=== PATIENT | male | born 1970 | race Caucasian/White ===

== ENCOUNTER 2016-12-24 13:06 | Emergency (ER) | payer OTHER ==
[2016-12-24 13:14] VITALS: BP 132/90; PULSE 91; RESP 16; TEMP 98.1; O2SAT 95
--- NOTE | 2016-12-24 13:25 | EDPHY ---
H & P Time Seen by Provider: 12/24/16 13:24 HPI/ROS: CHIEF COMPLAINT: Right arm pain and numbness. HISTORY OF PRESENT ILLNESS: This is a 46-year-old male with a history of cervical fusion and disc herniation status post neck injury 11/2015 secondary to a snowboarding accident. A week ago he developed right arm pain and numbness that have been constant and worsening since onset. He reports that these symptoms feel the same as his symptoms when he had a previous bulging disc. He admits associated lower cervical/upper thoracic spine pain. He denies weakness, headache, or other complaints. His last cervical spine MRI was 02/2016 and his neurosurgeon was Dr. Villanueva. . REVIEW OF SYSTEMS: A complete 10-point review of systems was performed and is negative except for those items mentioned in the HPI. Past Medical/Surgical History: Discectomy C5/C6, disc herniation C4/C5. 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 Smoking Status: Never smoked Physical Exam: General Appearance: Alert, pleasant Eyes: Pupils equal and round, no conjunctival pallor ENT, Mouth: Mucous membranes moist Neck: Normal inspection, no midline tenderness Neurological: decreased sensation to light touch over the lateral aspect of the right forearm; news reporter strength and finger flexion/extension/abduction normal; 1+ biceps tendon reflexes bilaterally Skin: Warm and dry, no rash Extremities: nontender, no swelling Psychiatric: Mood and affect normal Constitutional: Initial Vital Signs Temperature (C) 36.7 C 12/24/16 13:10 Heart Rate 91 12/24/16 13:10 Respiratory Rate 16 12/24/16 13:10 Blood Pressure 132/90 H 12/24/16 13:10 O2 Sat (%) 95 12/24/16 13:10 O2 Delivery Mode Room Air Allergies/Adverse Reactions: No Known Allergies Allergy (Verified 12/24/16 13:09) Home Medications: Medication Instructions Recorded methylPREDNISolone [Medrol Dose 1 each PO AD #1 ea 12/24/16 Jeffrey] Medical Decision Making ED Course/Re-evaluation: I offered the patient MRI imaging from the emergency department but he declined. He is comfortable taking a steroid taper and will call his neurosurgeon if symptoms do not improve. I also offered pain medications but he declined. Departure - Departure Disposition: Home, Routine, Self-Care Clinical Impression: Cervical radiculopathy Condition: Good Instructions: Cervical Disc Herniation (ED), Cervical Radiculopathy (ED) Additional Instructions: Take the steroid as instructed. Call Dr. Villanueva, neurosurgery, tomorrow to set up an appointment for next week. Return to the emergency department if you experience weakness, worsening pain or numbness, or any other serious worsening of condition. Referrals: Ad Villanueva MD [Medical Doctor] - 5-7 days, call for appt. Prescriptions: methylPREDNISolone [Medrol Dose Jeffrey] 1 each PO AD #1 ea Report Scribed for: Sheridan Zimmerman Report Scribed by: Mohan Pastor Date of Report: 12/24/16 Time of Report: 13:27 Physician Review and Approval Statement: 12/24/16 13:25 Portions of this note were transcribed by a biomedical repair technician. I personally performed a history, physical exam, medical decision making, and confirmed accuracy of information the transcribed note.
== END 2016-12-24 14:15 | disposition home or self-care (01) ==
DX: M54.12 Radiculopathy, cervical region (principal)

== ENCOUNTER → 2016-12-31 | Outpatient (CLI) | payer OTHER | LOC: FIMAGING 09:50 | PROVIDERS: ATTEND Family Medicine | DX: M67.462 Ganglion, left knee (principal); M25.562 Pain in left knee ==

== ENCOUNTER → 2017-01-10 | Outpatient (CLI) | payer OTHER | LOC: FIMAGING 14:26 | PROVIDERS: ATTEND Physician Assistant | DX: M50.20 Other cervical disc displacement, unspecified cervical region (principal); M99.71 Connective tissue and disc stenosis of intervertebral foramina of cervical region; Z98.1 Arthrodesis status ==

== ENCOUNTER 2017-02-28 11:35 | Emergency (ER) | payer OTHER ==
--- NOTE | 2017-02-28 11:58 | EDPHY ---
H & P Stated Complaint: Sent by PCP for CT and eval "lump in throat" x 4 days Source: Patient, RN/MD - Personal History Current Tetanus Diphtheria and Acellular Pertussis (TDAP): Yes - Medical/Surgical History Hx Asthma: No Hx Chronic Respiratory Disease: No Hx Diabetes: No Hx Cardiac Disease: No Hx Renal Disease: No Hx Cirrhosis: No Hx Alcoholism: No Hx HIV/AIDS: No Hx Splenectomy or Spleen Trauma: No Other PMH: disc in neck replaced - Social History Smoking Status: Former smoker Time Seen by Provider: 02/28/17 11:49 HPI/ROS: CHIEF COMPLAINT: Throat pain HISTORY OF PRESENT ILLNESS: 46-year-old male presents emergency department sent from his primary care doctor Bry for a CT scan of his neck. Patient reporting a 6 month history of feeling like he has to clear his throat all the time with the last month difficulty swallowing, food getting stuck. Patient reports the last 3 days he has had swelling and pain to the anterior neck. He denies fevers, no chills, denies trauma, no difficulty breathing. Patient had a cervical fusion many years ago. REVIEW OF SYSTEMS: A comprehensive 10 point review of systems is otherwise negative aside from elements mentioned in the history of present illness. (Shira Frazier) - Physical Exam Exam: Physical Exam Gen: Alert and Oriented, NAD HEENT: PERRL, moist mucous membranes, posterior pharynx with no erythema, uvula midline, no tonsillar hypertrophy, no exudate, no bleeding, no peritonsillar abscess NECK: Anterior neck tenderness to palpation, no swelling, no masses CV: regular rate and regular rhythm PULM: CTAB, no wheezes ABDOMEN: soft, non tender to palpation, BS present BACK: No CVA tenderness NEURO: Neurologically grossly intact EXTREMITIES: normal appearing SKIN: no rash or break in skin on exposed skin PSYCH: answers questions appropriately. (Shira Frazier) Constitutional: Initial Vital Signs Temperature (C) 37.1 C 02/28/17 11:37 Heart Rate 90 02/28/17 11:37 Respiratory Rate 18 02/28/17 11:37 Blood Pressure 138/84 H 02/28/17 11:37 O2 Sat (%) 95 02/28/17 11:37 O2 Delivery Mode Room Air Allergies/Adverse Reactions: No Known Allergies Allergy (Verified 02/28/17 11:38) Home Medications: Medication Instructions Recorded methylPREDNISolone [Medrol Dose 1 each PO AD #0 ea 02/28/17 Jeffrey] Medical Decision Making - Diagnostics Imaging: Discussed imaging studies w/ scallop raker Radiologist ED Course/Re-evaluation: IV established, CBC, i-STAT, thyroid panel, CT soft tissue neck with IV contrast ordered. Labs are unremarkable, CT soft tissue neck is negative for any abnormality. Dr. Mccray consulted. 2pm- Dr. Mccray preformed a flexible fiberoptic scope. Mild bruising noted to left vocal cord. No mass or abnormality. Patient will be discharged home. Dr. Mccray would like him to take Prilosec 20 mg twice a day for 6 weeks and he should start a Medrol Dosepak today. Patient is given strict return precautions for any worsening symptoms. He is comfortable with this plan. ( Shira Frazier) Differential Diagnosis: Diagnosis considered but not limited to mass, abrasion, foreign body, malignancy , acid reflux, Jaswant's angina (Shira Frazier) Other Provider: I evaluated and participated in the management of the patient. My co-signature indicates that I have reviewed this chart and I agree with thefindings and plan of care as documented.My personal H&P findings include: 46 year old male with history of clearing throat and some swallow difficulties for 6 months. Symptoms worsening over past 3 weeks with difficulty swallowing unless positioned a certain way, and now noticing voice changes. Also reports pain to anterior neck. Prior history of chewing tobacco. On exam, no swelling appreciated, no erythema, no crepitus on neck. Tenderness is present over larynx, thyroid, and anterior neck. Oral exam normal with no sublingual tenderness or swelling. No stridor, not wheezing, normal pulmonary exam. History concerning for serious etiologies including abscess, stricture, graves disease, malignancy, infection. Evaluation included CT scan of soft tissues of neck with contrast as well as evaluation by Dr Mccray of ENT. No significant findings on either study except for bruise on left vocal cord. No history of neck trauma, strangulation, choking provided by patient. Patient felt safe to be discharged with prilosec and a medrol dosepack. Strict return precautions given. Follow up with Dr Mccray. (Camelia Lance) - Data Points Laboratory Results: Laboratory Results 02/28/17 12:08 02/28/17 12:08 Departure - Departure Disposition: Home, Routine, Self-Care Clinical Impression: Anterior neck pain, Change in voice Condition: Good Instructions: Gastroesophageal Reflux Disease (ED) Additional Instructions: Take 20 mg of Prilosec twice daily for 6 weeks. Take Medrol Dosepak. Take each days pills all at once for the duration of the Dosepak. Follow up with Dr. Mccray in 2 weeks, call her nurse at [phone] on Thursday to schedule this appointment. Return to the emergency department or call Dr. Mccray for any worsening symptoms. Referrals: Pam Mccray MD [Medical Doctor] - As per Instructions (Call her nurse at ) Prescriptions: methylPREDNISolone [Medrol Dose Jeffrey] 1 each PO AD #0 ea
[2017-02-28 12:20] LABS: % IMMATURE GRANULYOCYTES 0.4 % (0.0-1.1); ABSOLUTE IMMATURE GRANULOCYTES 0.03 10^3/uL (0.00-0.10); ADD DIFF? NO; ADD MORPH? NO; ADD SCAN? NO; ATYPICAL LYMPHOCYTE FLAG 20 (0-99); FRAGMENT RBC FLAG 0 (0-99); HEMATOCRIT 45.8 % (40.0-51.0); HEMOGLOBIN 16.5 g/dL (13.7-17.5); LEFT SHIFT FLG 0 (0-99); LIPEMIA HEMOLYSIS FLAG 90 (0-99); MEAN CELL HEMOGLOBIN 33.9 pg (27.9-34.1); MEAN PLATELET VOLUME 9.8 fL (8.7-11.7); PLATELET CLUMPS FLAG 0 (0-99); PLATELET COUNT 189 10^3/uL (150-400); RED BLOOD CELL COUNT 4.87 10^6/uL (4.40-6.38); RED CELL DISTRIBUTION WIDTH 12.6 % (11.5-15.2)
[2017-02-28] MEDS ORDERED: IOPAMIDOL (ISOVUE-300) 100 ML BTL IV ONE (12:27)
[2017-02-28 12:40] LABS: ANION GAP 10 mEq/L (8-16); CALCIUM 10.1 mg/dL (8.5-10.4); CARBON DIOXIDE 25 mEq/l (22-31); CHLORIDE 103 mEq/L (97-110); GLOMERULAR FILTRATION RATE > 60; GLUCOSE 99 mg/dL (70-100); POTASSIUM 3.9 mEq/L (3.5-5.2); SODIUM 138 mEq/L (134-144)
[2017-02-28 13:14] VITALS: BP 136/89; PULSE 89; RESP 16; TEMP 98.6; O2SAT 96
--- NOTE | 2017-02-28 15:08 | GCON ---
[f rep st] CONSULTATION DATE OF CONSULTATION: 02/28/2017 CHIEF COMPLAINT: Hoarseness and pain. HISTORY OF PRESENT ILLNESS: This is a pleasant 46-year-old man who has a 4-6 month history of globus and throat clearing. He states he does not have reflux typically, although recently seems like he has been getting it more. He gets it 3-4 times per week. He states that over the past couple weeks he started having a little bit of increased difficulty swallowing with pain, and then more acutely over the past 3-4 days he has had some hoarseness with increasing difficulty swallowing which seems like it is mainly related to pain. He does state that he has to wash things down, but he does not cough or choke with liquids or have any difficulty having to regurgitate food. He denies any significant trauma to the neck, but states that over the past 2-3 days. He has noted some increasing swelling over the laryngeal cartilages, and he thinks it looks red. It does hurt to swallow. He denies any shortness of breath and does not feel otherwise that he has not had any fevers, and he denies overt malaise. PAST MEDICAL HISTORY: Significant for an anterior cervical fusion at C5-C6. He is a previous smoker, though does not smoke any more. 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 He does feel like he has been coughing more over the past week, but he has not had any other significant vocal trauma. He has not started any new medications. ALLERGIES: He has no known drug allergies. PHYSICAL EXAM: GENERAL: He is awake, alert, in no apparent distress. He has no stridor or wheeze that is audible. VITAL SIGNS: Saturations are 95% on room air. He is afebrile. Stable. HEENT: Ear canals are clear with an intact TM, and no middle ear effusion bilaterally and nose shows some dry crusting but otherwise no abnormalities. He has a small spur on the left oral cavity and oropharynx and pharynx shows a tongue that is mobile and midline. Palate elevates symmetrically. There is no posterior pharyngeal fullness or floor of mouth swelling. NECK: Shows no lymphadenopathy or masses. There is no significant redness or induration or cellulitis that I appreciate. He is pretty tender on the anterior aspect of the thyroid cartilage. It hurts to palpation over this region as well as over the cricoid, and there may be a little bit of edema here but not significantly appreciated. He has no other masses or lesions. Flexible fiberoptic scope was performed after verbal informed consent was obtained. I sprayed about 1 cc total of oxymetazoline and 4% lidocaine into the bilateral nares. Once this had sufficient time to act, the scope was placed through the right naris. Nasal cavity is clear. Nasopharynx is clear as well. Oral cavity and oropharynx shows a base of tongue that is symmetric. Vallecula is open and clear. Bilateral vocal cords are mobile, but he does have what looks like some ecchymosis of the left true vocal fold. There is no significant edema of the vocal fold or the false cords. He has no pooling of the hypopharynx, but he does have some edema of the post cricoid region as well as interarytenoid edema. The immediate subglottis looks patent from what I can tell. CT scan was reviewed, and I also spoke with Dr. Pagan, the radiologist. Neither of us could appreciate any significant edema or swelling of the anterior soft tissues of the neck or of the interior of the larynx. He does have a previous ACDF at C5 and C6 that is appreciated. The hardware looks intact, and there is no cellulitis overlying this region. Airway is patent on the scan. ASSESSMENT AND PLAN: This is a patient who has odynophagia and hoarseness for the past couple of days as well as reflux changes and symptoms. He has an ecchymosis of the left true vocal fold. I am not quite sure why he has this. It could be related excessive coughing or yelling. He did not have any trauma to the neck, and there were no fracture seen on the CT scan. I explained I wanted to do some voice rest for the next couple of days. I would like to start him on Prilosec twice a day 30 minutes before meals. I would also like to do a Medrol Dosepak. Starting today in taking a full days dose at 1 time in the morning he was given our phone number to call for repeat appointment in 2 weeks for re-evaluation, and he was encouraged to call if he gets any symptoms that worsen further sooner Thanks for the consultation and call me if you need anything at all. /[id number]/MODL MTDD
== END 2017-02-28 14:40 | disposition home or self-care (01) ==
DX: M54.2 Cervicalgia (principal); R49.9 Unspecified voice and resonance disorder; Z87.891 Personal history of nicotine dependence
CPT/HCPCS: 82947-QW; 84481-90; Q9967

== ENCOUNTER 2018-02-24 15:22 | Emergency (ER) | payer OTHER ==
--- NOTE | 2018-02-24 15:51 | EDPHY ---
General Time Seen by Provider: 02/24/18 15:41 Narrative: CHIEF COMPLAINT: Fall, multiple areas of pain HISTORY OF PRESENT ILLNESS: Patient complains of pain in his shoulders, ribs, thoracic spine, between his scapula, and pain throughout his legs and arms. He says he was working next to a [employer] at work yesterday around 3:00 p.m. When he slipped and fell backwards. He landed on concrete striking his back 1st. He says "then my head whipped back and hit the ground." He denies any loss of consciousness. Yesterday he said that he felt minimal pain in the areas he struck the ground. Today he awoke with significant pain in all the areas of above. It is all worse with movement of his limbs. There is no radiating pain. He does have a mild headache. He has no numbness or tingling anywhere. He does have thoracic pain, extremity pain at times. It is worse when he lays down as well. He has no vomiting. No visual disturbance. No neck pain or stiffness. No incontinence of bowel or bladder. ESTABLISHED ORTHOPEDIST: None currently REVIEW OF SYSTEMS: Ten systems reviewed and are negative unless otherwise noted in the HPI PAST MEDICAL HISTORY: Cervical stenosis status post fusion with chronic neck pain PAST SURGICAL HISTORY: Cervical fusion 1003 SOCIAL HISTORY: Nonsmoker. Occasional alcohol use. Occasional medical marijuana use. 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 No Mao sign, raccoon eyes or signs of trauma. ENT: Pupils equal round reactive. EOM symmetric. Airway widely patent Neck: Supple. There is no midline tenderness, crepitus, step-off or deformity. There is soft tissue tenderness of the trapezius. Cardiovascular: Pulses normal throughout. Regular rate rhythm with no murmur. Brisk cap refill Back: Soft tissue tenderness of the thoracic and lumbar spine. Mild thoracic spine tenderness. No lumbar spine tenderness, crepitus step-off or deformity. Neurological: A&O, strength is symmetric in upper extremities and lower extremities including the great toes. Sensory is symmetric to the deltoids, anterior thighs and plantar surfaces. No pronator drift. Normal finger-to- nose. Skin: Warm and dry, no rash no petechiae. No purpura. No lacerations, abrasions or puncture Extremities: There is no bony tenderness of the extremities. There is tenderness of the soft tissue structures at all levels of the upper extremities , lower extremities. Range of motion is symmetric in the upper lower extremities. Psychiatric: Mood and affect normal DIFFERENTIAL DIAGNOSES: Including but not limited to delayed onset muscle soreness, strain, sprain, fracture, concussion, intracranial hemorrhage MDM: 3:50 p.m. Mechanical fall yesterday with delayed onset of pain and soreness that started today. He is neuro intact with some mild rib tenderness and thoracic spine tenderness. He has no lumbar or cervical tenderness. No evidence of intracranial abnormality or basilar skull fracture. I have ordered medications for his discomfort as well as chest x-ray and thoracic spine x-ray. He is resting comfortably in no acute distress. 4:12 p.m. X-rays as read by me reveal no acute findings. There is cervical spine hardware in place. 4:30 p.m. Patient re-evaluated. His symptoms are starting to improve. I reviewed the x- rays with him. I do feel he is stable for discharge home with symptomatic medications. He will keep applying the heating pad that he now tells me he has been using, which has helped his symptoms. I will provide short course of pain medication and muscle relaxant. We have strict ED precautions for worsening pain, numbness, tingling, weakness, incontinence of bowel or bladder. I provided the on-call primary care information for him. I have answered all his questions. He is comfortable with being discharged home, and he is discharged home stable condition. SUPERVISION: This patient was independently evaluated without direct involvement of or examination by the attending physician. ED Precautions: Worsening pain. Erythema, edema, cyanosis, pallor, paresthesia or anesthesia. - History Smoking Status: Former smoker - Objective Vital Signs: Initial Vital Signs Temperature (C) 98.1 F 02/24/18 15:24 Heart Rate 94 02/24/18 15:24 Respiratory Rate 16 02/24/18 15:24 Blood Pressure 126/82 H 02/24/18 15:24 O2 Sat (%) 96 02/24/18 15:24 O2 Delivery Mode Room Air Allergies/Adverse Reactions: No Known Allergies Allergy (Verified 02/28/17 11:38) Home Medications: Medication Instructions Recorded Cyclobenzaprine [Flexeril 10 MG 10 mg PO TID PRN #9 tab 02/24/18 (*)] oxyCODONE HCL/ACETAMINOPHEN 1 each PO Q4-6PRN PRN #9 tablet 02/24/18 [Percocet 5-325 mg Tablet] Medications Given: Discontinued Medications Cyclobenzaprine HCl (Flexeril) 10 mg PO EDNOW ONE Stop: 02/24/18 15:53 Last Admin: 02/24/18 15:57 Dose: 10 mg Oxycodone/Acetaminophen (Percocet 5/325) 2 tab PO EDNOW ONE Stop: 02/24/18 15:53 Last Admin: 02/24/18 15:58 Dose: 2 tab Departure - Departure Disposition: Home, Routine, Self-Care Clinical Impression: Fall Qualifiers: Encounter type: initial encounter Qualified Code(s): W19.XXXA - Unspecified fall, initial encounter Thoracic myofascial strain Qualifiers: Encounter type: initial encounter Qualified Code(s): S29.019A - Strain of muscle and tendon of unspecified wall of thorax, initial encounter Acute lumbar myofascial strain Qualifiers: Encounter type: initial encounter Qualified Code(s): S39.012A - Strain of muscle, fascia and tendon of lower back, initial encounter Closed head injury Qualifiers: Encounter type: initial encounter Qualified Code(s): S09.90XA - Unspecified injury of head, initial encounter Condition: Good Instructions: Muscle Strain (ED), Low Back Strain (ED) Additional Instructions: 1. Flexeril as prescribed for muscle spasm as needed 2. Pain medication as prescribed as needed 3. Follow up with primary care physician. I have provided the information for you to call and establish with 4. ED precautions as discussed [facility]. [facility] Referrals: Aurea Londono MD [Medical Doctor] - As per Instructions Physician,Emergency DepMD ines [Medical Doctor] - As per Instructions Prescriptions: Cyclobenzaprine [Flexeril 10 MG (*)] 10 mg PO TID PRN #9 tab PRN Reason: Spasms oxyCODONE HCL/ACETAMINOPHEN [Percocet 5-325 mg Tablet] 1 each PO Q4-6PRN PRN #9 tablet PRN Reason: Pain, Breakthrough
[2018-02-24] MEDS ORDERED: CYCLOBENZAPRINE 10 MG TAB PO ONE (15:52)
[2018-02-24] MEDS ORDERED: OXYCODONE/APAP 5/325 TAB PO ONE (15:52)
[2018-02-24 16:43] VITALS: BP 123/85
== END 2018-02-24 16:41 | disposition home or self-care (01) ==
DX: S29.019A Strain of muscle and tendon of unspecified wall of thorax, initial encounter (principal); S39.012A Strain of muscle, fascia and tendon of lower back, initial encounter; S09.90XA Unspecified injury of head, initial encounter; Z87.891 Personal history of nicotine dependence; W01.198A Fall on same level from slipping, tripping and stumbling with subsequent striking against other object, initial encounter; Y92.69 Other specified industrial and construction area as the place of occurrence of the external cause; Y99.0 Civilian activity done for income or pay; Y93.89 Activity, other specified

== ENCOUNTER 2018-02-25 10:59 | Emergency (ER) | payer OTHER ==
--- NOTE | 2018-02-25 12:22 | EDPHY ---
H & P Stated Complaint: inj at work tues/back pain seen yesterday/coughed yesterday with increasing Time Seen by Provider: 02/25/18 12:15 HPI/ROS: CHIEF COMPLAINT: New onset C-spine pain. HISTORY OF PRESENT ILLNESS: 47-year-old male seen emergency department yesterday after he fell off of a [employer]ift, his feet were approximately 4 ft in the air when he fell backward. This was a mechanical incident. Emergency department yesterday he had thoracic spine imaging which was negative. States that upon returning home he coughed and felt exquisite pain to the left paraspinous thoracic region. This pain is controlled with Flexeril and opiates. He does note a new development of midline C-spine pain as well as new development of bilateral upper extremity paresthesias. No weakness no wrist drop. He did impact his head when he fell. No loss of consciousness. No headache. No nausea or vomiting. REVIEW OF SYSTEMS: A ten point review of systems was performed and is negative with the exception of the items mentioned in the HPI PAST MEDICAL/SURGICAL HISTORY: no anticoagulant use, no relevant medical/ surgical history SOCIAL HISTORY: denies alcohol use at time of incident PHYSICAL EXAM 1) GENERAL: Well-developed, well-nourished, alert and oriented. Appears uncomfortable when he is asked to move. Answering questions appropriately. 2) HEAD: Normocephalic, atraumatic 3) HEENT: Pupils equal, round, reactive to light bilaterally. Negative Horners. Nasopharynx, oropharynx, clear. No deformity or angulation of nose. No septal hematoma. No rhinorrhea. No oral trauma. Ears bilaterally with normal tympanic membranes. No hemotympanum. No fluid or blood in the external auditory canal. No raccoon eyes. No Mao sign. Teeth are normally aligned with no gross malocclusion, TMJ bilaterally nontender, facial bones nontender including the zygomatic arch, maxilla mandible. 4) NECK: No cervical collar is on. Patient is unable to completely differentiate between true midline pain versus just lateral of midline pain.Cervical collar is replaced at that point.and patient has no complaints of midline cervical pain, no effusion noted, trachea midline, no JVD. 5) LUNGS: Clear to auscultation bilaterally, no wheezes, no rhonchi, no retractions. No obvious signs of trauma. No chest wall pain. No flaring, no grunting. Moving symmetrically. No crepitus. 6) HEART: [Regular rate and rhythm, 7) ABDOMEN: No guarding, no rebound, no focal tenderness, no peritoneal signs, no signs of trauma, no ecchymosis 8) MUSCULOSKELETAL: Moving all extremities, no focal areas of tenderness, no obvious trauma. 9) BACK: Tender to palpation left paraspinous thoracic region with no visible signs of trauma. No midline vertebral tenderness, no fluctuance, no step-off, no obvious trauma, no visual or palpable abnormality. 10) SKIN: No laceration. No abrasion 11) NEURO: Awake, alert, and oriented to person, place and time. Answers questions appropriately. There were no obvious focal neurologic abnormalities. No cerebellar dysfunction. Cranial nerves 2 through to 12 intact. Normal steady gait. Upper and lower extremities bilaterally with strength 5 / 5, reflexes 2+. DIFFERENTIAL DIAGNOSIS: In no particular order my differential includes but is not limited to deep space infection, cervico-cranial vessel disssection, muscle strain. - Personal History Current Tetanus/Diphtheria Vaccine: Yes - Medical/Surgical History Hx Asthma: No Hx Chronic Respiratory Disease: No Hx Diabetes: No Hx Cardiac Disease: No Hx Renal Disease: No Hx Cirrhosis: No Hx Alcoholism: No Hx HIV/AIDS: No Hx Splenectomy or Spleen Trauma: No Other PMH: C5 - C6 fusion. - Social History Smoking Status: Former smoker Constitutional: Initial Vital Signs Temperature (C) 36.4 C 02/25/18 11:04 Heart Rate 83 02/25/18 11:04 Respiratory Rate 18 02/25/18 11:04 Blood Pressure 126/82 H 02/25/18 11:04 O2 Sat (%) 95 02/25/18 11:04 O2 Delivery Mode Room Air Allergies/Adverse Reactions: No Known Allergies Allergy (Verified 02/25/18 11:04) Home Medications: Medication Instructions Recorded Cyclobenzaprine [Flexeril 10 MG 10 mg PO TID PRN #9 tab 02/24/18 (*)] oxyCODONE HCL/ACETAMINOPHEN 1 each PO Q4-6PRN PRN #9 tablet 02/24/18 [Percocet 5-325 mg Tablet] Lidocaine [Lidoderm] 1 each TP BID #30 adh..patch 02/25/18 methylPREDNISolone [Medrol Dose 4 mg PO DAILY #1 ea 02/25/18 Jeffrey] Medical Decision Making - Diagnostics Imaging Results: Imaging Impressions Cervical Spine CT 02/25/18 12:26 Impression: 1. No acute posttraumatic abnormality identified. If there is persistent pain or neurologic deficit, consider MRI and/or flexion and extension views if clinically indicated. 2. Additional findings as above. Findings discussed with Pamela Weber on 02/25/2018 at 13:12. Cervical Spine MRI 02/25/18 13:17 Impression: 1. Prior diskectomy and interbody fusion at C5-C6. Diffuse annular bulging at C4 -C5 with bilateral neural foraminal stenosis. No acute abnormality of the cervical spine or cervical spinal cord identified. Ribs w/Chest X-Ray 02/25/18 13:17 Impression: 1. Negative Right rib series. 2. No acute abnormality within the chest. 3. Mild scoliosis. Images reviewed myself ED Course/Re-evaluation: 12:26 p.m.: I reviewed this patient's medical records and x-ray report of his thoracic spine perform the emergency department yesterday. Emergency department today he is complaining of paraspinous left thoracic pain reproducible to palpation deep inspiration. Has absolutely no midline thoracic spine pain, he is breathing comfortably, no crepitus, lungs are clear bilaterally. At this time I do not think that further imaging of his thoracic spine is indicated. Addition his pain is controlled. Head however, he is complaining of new midline cervical spine pain as well as new bilateral upper extremity paresthesias. He is neurologically intact on exam. He has been placed in cervical collar, will obtain CT imaging and likely MRI if he remains with paresthesias. Care of patient under supervision of secondary supervising physician Dr Garcia . 1:19 p.m.: I reviewed the patient his negative CT imaging. He continues to complain of paresthesias bilateral hands and fingers . Will obtain MRI. Will place IV for pain management. 2:57 p.m.: Phone consultation with Dr. Teixeira neurosurgeon regarding the patient 's imaging which is negative for acute abnormality. The patient continues to complain of paresthesias to the bilateral upper extremities. Will initiate therapy with Medrol Dosepak and patient will follow up on outpatient basis. 3:05 p.m.: I re-evaluated the patient. Cervical collar is removed. Full range of motion which does not worsened peripheral paresthesias neurologic deficits. His left thoracic back pain is controlled at this time. I re- examined him at this time. Specific attention paid to the location of his spleen and kidneys and he has absolutely no discomfort over these areas. I think that acute splenic injury, acute renal injury is less than likely in this patient at this time. I do not think that specific imaging of the abdomen is indicated at this time. Chest x-ray performed showing no pneumothorax, no definitive rib fracture. He has been given incentive spirometer. He has analgesia at home. his pain is controlled. - Data Points Medications Given: Discontinued Medications Ketorolac Tromethamine (Toradol) 15 mg IVP EDNOW ONE Stop: 02/25/18 13:18 Last Admin: 02/25/18 14:37 Dose: 15 mg Lorazepam (Ativan Injection) 1 mg IVP EDNOW ONE Stop: 02/25/18 13:18 Last Admin: 02/25/18 14:44 Dose: Not Given Miscellaneous Medication (Icy Hot Lidocaine/Menthol 4%/1% Patch) 1 patch TD EDNOW ONE Stop: 02/25/18 15:05 Last Admin: 02/25/18 15:34 Dose: 1 patch Departure - Departure Disposition: Home, Routine, Self-Care Clinical Impression: Paresthesia of upper extremity, Thoracic spine pain Cervical strain, acute Qualifiers: Encounter type: initial encounter Qualified Code(s): S16.1XXA - Strain of muscle, fascia and tendon at neck level, initial encounter Condition: Good Instructions: Cervical Strain (ED), Cervical Strain (DC), Thoracic Pain (ED) Additional Instructions: Return to the ER immediately if you experience new or worsening neck pain, dizziness, visual disturbance, double vision, lightheadedness, facial droop, or any other symptoms that concern you. Avoid deep tissue massage and chiropractic manipulation, until symptom-free, and cleared by your regular health care provider. Referrals: Oli Teixeira MD [Medical Doctor] - 5-7 days, call for appt. Prescriptions: Lidocaine [Lidoderm] 1 each TP BID #30 adh..patch methylPREDNISolone [Medrol Dose Jeffrey] 4 mg PO DAILY #1 ea
[2018-02-25] MEDS ORDERED: LORazepam 2 MG/ML INJ IVP ONE (13:17)
[2018-02-25] MEDS ORDERED: KETOROLAC 15 MG/1 ML SDV IVP ONE (13:17)
[2018-02-25] MEDS ORDERED: LIDOCAINE 4%/MENTHOL 1% PATCH TD ONE (15:04)
[2018-02-25 15:51] VITALS: BP 127/93
[2018-02-25] MEDS ORDERED: PATCH REMOVAL 1 EA PATCH TD SCH (21:00)
== END 2018-02-25 15:51 | disposition home or self-care (01) ==
DX: S16.1XXA Strain of muscle, fascia and tendon at neck level, initial encounter (principal); M54.6 Pain in thoracic spine; R20.2 Paresthesia of skin; Z87.891 Personal history of nicotine dependence; W17.89XA Other fall from one level to another, initial encounter
CPT/HCPCS: 96374; J1885